=== PATIENT | female | born 1995 | race Caucasian/White ===

== ENCOUNTER 2023-04-22 11:39 | Inpatient (IN) | payer OTHER ==
[~2023-04-22] VITALS: Ht 157.5 cm; Wt 72.1 kg
[2023-05-03] MEDS ORDERED: PRENATAL VITAM1 EAC7 PO (06:46)
[2023-05-03] MEDS ORDERED: COMPLEJO B (06:47)
[2023-05-03 08:00] LABS: HEMATOCRIT 30.2 % (36.0-45.00); HEMOGLOBIN 10.3 g/dL (12.0-15.00); MEAN CELL VOLUME 91.1 fL (80.00-100.00); PLATELET COUNT 182 K/uL (150-450); RED BLOOD COUNT 3.32 M/uL (4.00-6.00)
[2023-05-03 08:23] LABS: INR 0.97; PARTIAL THROMBOPLASTIN TIME 24.8 SECONDS (22.0-34.0); PROTHROMBIN TIME 10.2 SECONDS (9.0-11.5)
[2023-05-03 22:15] LABS: HEMATOCRIT 28.4 % (36.0-45.00); HEMOGLOBIN 9.9 g/dL (12.0-15.00); MEAN CELL VOLUME 90.4 fL (80.00-100.00); MEAN CORPUSCULAR HEMOGLOBIN 31.7 pg (27.00-32.0); PLATELET COUNT 182 K/uL (150-450); RED BLOOD COUNT 3.14 M/uL (4.00-6.00); RED CELL DISTRIBUTION WIDTH 15.3 % (11.5-14.5)
== END 2023-05-05 12:29 | disposition home or self-care (01) | DRG 768 ==
LOC: LDR 05-03 06:37 → OB/GYN 05-04 01:01
PROVIDERS: ADMIT Obstetrics & Gynecology; ATTEND Obstetrics & Gynecology
PROC: 10E0XZZ Delivery of Products of Conception, External Approach (ICD-10-PCS; principal; 2023-05-03)
PROC: 0DQR0ZZ Repair Anal Sphincter, Open Approach (ICD-10-PCS; 2023-05-03)
PROC: 0W8NXZZ Division of Female Perineum, External Approach (ICD-10-PCS; 2023-05-03)
PROC: 4A1HXCZ Monitoring of Products of Conception, Cardiac Rate, External Approach (ICD-10-PCS; 2023-05-03)
DX: O70.22 Third degree perineal laceration during delivery, IIIb (principal); Z37.0 Single live birth; Z3A.38 38 weeks gestation of pregnancy; Z20.822 Contact with and (suspected) exposure to COVID-19

== ENCOUNTER 2024-02-18 08:53 | Emergency (ER) | payer OTHER ==
[~2024-02-18] VITALS: Ht 157.5 cm; Wt 61.2 kg
[~2024-02-18 08:53] MED LIST: COMPLEJO B; PRENATAL VITAM1 EAC7 PO
[2024-02-18] MEDS ORDERED: ANTICONCEPTIVAS (08:58)
[2024-02-18] MEDS ORDERED: 0.9 % SODIUM CHLORIDE 1,000 ML IV ONE (09:15)
[2024-02-18] MEDS ORDERED: FAMOtidine 10 MG/ML (4ML VIAL) IV ONE (09:15)
[2024-02-18] MEDS ORDERED: ONDANSETRON HCL 2 MG/ML VIAL IV ONE (09:15)
[2024-02-18] MEDS ORDERED: ONDANSETRON HCL 2 MG/ML VIAL ONE (09:24)
[2024-02-18] MEDS ORDERED: FAMOTIDINE/PF 20 MG/2 ML VIAL ONE (09:25)
[2024-02-18 10:36] LABS: HEMATOCRIT 39.6 % (36.0-45.00); HEMOGLOBIN 13.6 g/dL (12.0-15.00); MEAN CELL VOLUME 89.4 fL (80.00-100.00); MEAN CORPUSCULAR HEMOGLOBIN 30.6 pg (27.00-32.0); MEAN CORPUSCULAR HGB CONC 34.2 g/dl (32.0-36.0); PLATELET COUNT 203 K/uL (150-450); RED BLOOD COUNT 4.43 M/uL (4.00-6.00); RED CELL DISTRIBUTION WIDTH 12.9 % (11.5-14.5)
[2024-02-18 10:41] LABS: ALBUMIN 4.1 gm/dL (3.4-5.0); BILIRUBIN TOTAL 0.3 mg/dL (0.3-1.2); CALCIUM 9.1 mg/dL (8.5-10.1); CREATININE SERUM 0.87 mg/dL (0.55-1.02); GFR 76.45; GLOBULINA 4.1 G/DL (2.4-3.5); POTASSIUM 4.35 mEq/L (3.5-5.1); TOTAL PROTEIN 8.2 gm/dL (6.4-8.2)
[2024-02-18 11:03] LABS: PH,URINE 5.5 (5.0-8.0); URINE APPEARANCE Turbid; URINE BILIRRUBIN Negative (NEGATIVE); URINE BLOOD Negative; URINE COLOR Yellow; URINE GLUCOSE Negative (NEGATIVE); URINE KETONE Trace (NEGATIVE); URINE LEUKOCYTE Negative; URINE NITRATE Negative; URINE PROTEIN Trace (NEGATIVE); URINE UROBILINOGEN 0.2 E.U./dl
[2024-02-18 11:06] LABS: URINE BACTERIA 15.1 uL (0.0-1933); URINE EPITHELIAL CELLS 15.2 uL (0.0-38.8); URINE RBC 4.5 uL (0.0-20.8); URINE WBC 6.6 uL (0.0-23.2)
[2024-02-18 11:27] LABS: URINE CAST 0.45 uL (0.0-1.40)
[2024-02-18] MEDS ORDERED: PROMETHAZINE HCL 25 MG/ML AMPUL ONE (12:17)
[2024-02-18] MEDS ORDERED: PROMETHAZINE HCL 25 MG/ML AMPUL IM ONE (12:30)
[2024-02-18] MEDS ORDERED: PEPCID AC20 MG PO (13:21)
[2024-02-18] MEDS ORDERED: ZOFRAN8 MG PO (13:21)
== END 2024-02-18 14:49 | disposition home or self-care (01) ==
LOC: ER 08:55
PROVIDERS: General Practice
DX: K29.70 Gastritis, unspecified, without bleeding (principal); Z91.013 Allergy to seafood